=== PATIENT | male | born 1955 | race Caucasian/White ===

== ENCOUNTER 2020-02-12 00:24 | Outpatient (CLI) | payer MEDICARE, SELFPAY ==
[2020-02-12 19:45] LABS: SARS-CoV-2 RNA PCR Negative
== END 2020-02-12 00:25 | disposition home or self-care (01) ==
LOC: ANHCOVIDDT 00:24
PROVIDERS: PCP Family Medicine; Visit Provider Internal Medicine Gastroenterology
DX: Z01.818 Encounter for other preprocedural examination (principal); Z11.59 Encounter for screening for other viral diseases
CPT/HCPCS: 87635; C9803; U0003

== ENCOUNTER 2020-02-14 03:06 | Day surgery (SDC) | payer MEDICARE, SELFPAY ==
[2020-02-08 15:48] VITALS: BMI 26.0
--- NOTE | 2020-02-14 09:02 | WPDANESEPPF ---
Anes - Initial Pre Proc Eval Procedure: Operation Date: 02/14/20 10:00 Proposed Procedures p Colonoscopy - Dereck Bain MD Date/Time: 02/14/20 09:02 Surgeon: Dereck Bain MD Pre Op Diagnosis: blood in stool Patient Data Age: 65 Gender: M Height: 1.75 m Weight: 80 kg Allergies Allergy/AdvReac Type Severity Reaction Status Date / Time amlodipine Allergy Intermediate Hives Verified 02/08/20 16:12 Home Medications Medication Instructions Recorded Confirmed Type cholecalciferol (vitamin D3) 50 mcg PO DAILY 02/08/20 02/08/20 History [Vitamin D3] cyanocobalamin (vitamin B-12) 1,000 mcg PO DAILY 02/08/20 02/08/20 History [Vitamin B-12] ettgifeo-gtp-OT-lycopen-lutein 1 tablet PO DAILY 02/08/20 02/08/20 History [Centrum Silver Men] omega 2-sjg-lrh-fish oil [Fish Oil] 1 cap PO DAILY 02/08/20 02/08/20 History rosuvastatin 40 mg PO DAILY 02/08/20 02/08/20 History vitamin E 400 unit PO DAILY 02/08/20 02/08/20 History Patient hx anesthesia problems: none Family hx anesthesia problems: none PMFSH Past Medical History Medical History (Updated 02/14/20 @ 09:03 by Dalton Parson MD) CAD (coronary artery disease) Hypercholesterolemia MYKE (obstructive sleep apnea) does not use machine Surgical History Surgical History (Updated 02/14/20 @ 09:03 by Dalton Parson MD) 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 Questions were solicited and answers provided to the satisfaction of the patient/family/POA.
[2020-02-14] MEDS: LACTATED RINGERS 1,000 ML 150 ML IV CONT (09:53)
[2020-02-14 09:55] VITALS: BP 143/88; PULSE 73; RESP 18; TEMP 36.5; O2SAT 99; BMI 25.8
--- NOTE | 2020-02-14 10:03 | P.CONGI_ITS ---
Assessment and Plan Assessment and plan (1) Rectal bleeding: Code(s): K62.5 - Hemorrhage of anus and rectum Status: Acute Assessment and Plan: Patient has had significant rectal bleeding. Not active at the present time. Plan is for high-fiber diet. Colonoscopy to assess for source of bleeding. Further recommendations will be given after endoscopy. (2) CAD (coronary artery disease): Code(s): I25.10 - Atherosclerotic heart disease of [place] coronary artery without angina pectoris Status: Acute GI Consult Note Consult date/time: 02/14/20 10:03 HPI: Korey Marcano is a 65 year old male seen in evaluation at the request of Dr Cristofer Borges. Patient reports having had blood in his stools every day for at least 2 weeks. He denies any associated abdominal or rectal pain. He states his bowel habits have been normal. He states during that 2 week interval had rather heavy flow of blood. Described as dark reddish. Past medical history is significant for last colonoscopy 2011. He denies any prior history of colon polyps. States his family history is noncontributory with no known history of colon or rectal disease. 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 Meds Home Medications and Allergies Home Medications Medication Instructions Recorded Confirmed Type cholecalciferol (vitamin D3) 50 mcg PO DAILY 02/08/20 02/08/20 History [Vitamin D3] cyanocobalamin (vitamin B-12) 1,000 mcg PO DAILY 02/08/20 02/08/20 History [Vitamin B-12] kyweegec-gqs-NQ-lycopen-lutein 1 tablet PO DAILY 02/08/20 02/08/20 History [Centrum Silver Men] omega 6-ghn-nvb-fish oil [Fish Oil] 1 cap PO DAILY 02/08/20 02/08/20 History rosuvastatin 40 mg PO DAILY 02/08/20 02/08/20 History vitamin E 400 unit PO DAILY 02/08/20 02/08/20 History Allergies Allergy/AdvReac Type Severity Reaction Status Date / Time amlodipine Allergy Intermediate Hives Verified 02/14/20 09:54 Vital Signs Vital Signs - 24 hr 02/14/20 09:55 Temperature 97.7 F Pulse Rate 73 Respiratory Rate 18 Blood Pressure 143/88 H Pulse Oximetry 99 Exam Narrative: Exam Narrative: Physical exam reveals patient to be alert. Vital signs stable. HEENT exam unremarkable. Lungs are clear to auscultation and percussion. Heart is without murmur or extra sounds. Abdominal exam bowel sounds are present soft nontender with no hepatosplenomegaly. Digital external rectal exam normal.
[2020-02-14 11:10] VITALS: BP 93/59; PULSE 66; RESP 20; O2SAT 98
[2020-02-14 11:20] VITALS: BP 99/58; PULSE 56; RESP 18; O2SAT 98
[2020-02-14 11:30] VITALS: BP 125/69; PULSE 58; RESP 18; O2SAT 99
== END 2020-02-14 11:35 | disposition home or self-care (01) ==
PROVIDERS: PCP Family Medicine; Visit Provider Internal Medicine Gastroenterology
PROC: 0DJD8ZZ Inspection of Lower Intestinal Tract, Via Natural or Artificial Opening Endoscopic (ICD-10-PCS; CPT 45378; principal; 2020-02-14 10:00)
DX: K62.5 Hemorrhage of anus and rectum (principal); K64.8 Other hemorrhoids; I25.10 Atherosclerotic heart disease of native coronary artery without angina pectoris; E78.00 Pure hypercholesterolemia, unspecified; G47.33 Obstructive sleep apnea (adult) (pediatric); Z95.1 Presence of aortocoronary bypass graft
CPT/HCPCS: 45378; 87635; C9803; J2704; J7120; U0003